=== PATIENT | male | born 1960 | race Caucasian/White ===

== ENCOUNTER → 2019-07-18 | Outpatient (CLI) | payer OTHER ==
[~2019-07-18] MED LIST: ALLOPURINOL 30300 M1 PO; HYDROCHLOROTHIA50 MG PO; LIPITOR20 MG PO; LISINOPRIL20 MG PO; OMEPRAZOLE20 MG PO; PHENERGAN 25 MG25 MG PO; TRICOR145 MG PO
== END ==
LOC: M.CT 09:30
DX: Z13.6 Encounter for screening for cardiovascular disorders (principal); E78.00 Pure hypercholesterolemia, unspecified; I25.10 Atherosclerotic heart disease of native coronary artery without angina pectoris